=== PATIENT | male | born 1980 | race African-American/Black ===

== ENCOUNTER 2020-04-17 13:10 | Outpatient (CLI) | payer OTHER, SELFPAY ==
--- NOTE | 2020-04-27 18:21 | WPDHOMESLEEP ---
Sleep Study - Home Date of Study: 04/17/20 Ordering Provider: Nigel Ivory DO Interpreting Physician: Jacqueline Duke MD Home Sleep Study Type: Watch PAT Height: 1.68 m Weight: 99.337 kg Body Mass Index: 35.3 [place]: 5 Reason for Sleep Study Witnessed apneas Sleep History Bin Chandler Jr is a 40 yo man with Constant loud snoring. He rarely awakens at night with heartburn, belching or coughing. He does not awaken from sleep feeling short of breath there is no family history of sleep disordered breathing. He rarely has trouble sleep with a cold. He occasionally wakes up gasping for breath at night, rarely has breathing problems reported by others. He does not sweat excessively at night. He rarely notices his heart pounding or beating irregularly at night. He occasionally falls asleep during the day, rarely involuntarily, never while driving or during physical effort. He does not have loss of muscle tone was trauma motion. He does not have daytime difficulties due to excessive sleepiness. He works as an assistant toddler teacher. he does not feel paralyzed on waking or falling asleep, does not have vivid dreamlike scenes upon awakening or falling asleep. He is never afraid to go sleep. Does not have nightmares. He rarely remembers his dreams. He frequently has racing thoughts. He rarely feels sad or depressed. He does not have anxiety. He occasionally has muscular tension. He does not notice part of his body jerking. He rarely kicks at night. He does not have [place] feelings in his legs and does not have leg pain at night. He does not have morning jaw pain. He does not grind his teeth during sleep. He rarely is bothered by pain during the day. He is not awakened by pain at night. He rarely wakes up feeling stiff in the morning. He does not have sore or achy muscles on waking and he does not have pain in the neck and spine on waking. Normal bedtime is 11:00 p.m. falling asleep within 30-40 minutes typically waking 2-3 times at night long enough to go to the bathroom and then return to sleep. He wakes in the morning at 6:30 a.m.. Weekend schedule is the same. He estimates that he gets between 5 and 6 hours of sleep nightly. He does at times take a short nap. A short nap is not refreshing. He is usually drowsy in the morning for 2 hours or longer. He feels better in the afternoon compared to the morning. Habits: He never smoked tobacco. One caffeinated beverage a day and [address] [facility] Past Medical History Medical History (Updated 04/27/20 @ 19:06 by Jacqueline Duke MD) CKD (chronic kidney disease) stage 2, GFR 60-89 ml/min Dyslipidemia HTN (hypertension) Social History Social History (Updated 07/23/19 @ 08:34 by Luzmaria Ramirez CMA) Smoking status: Never smoker Medications Home Medications Medication Instructions Recorded Confirmed Type atorvastatin 20 mg tablet 20 mg PO DAILY #30 tablet 03/09/20 Rx atenolol 50 mg tablet See Rx Instructions .ROUTE 03/23/20 Rx .COMPLEX #30 tablet Sleep Procedure The sleep study was completed using [employer] a technically adequate device with seven channels: peripheral arterial tone, actigraphy, body position, snore, respiratory movement, pulse oximetry, sleep staging, and heart rate. Prior to using the device, the patient received verbal and written instructions for its application and was provided with the help desk phone number for additional telephonic instruction with 24-hour availability of qualified personnel to answer questions. Sleep Architecture The total recording time was 8 hours 49 minutes. The total sleep time was 8 hours 7 minutes. The indices on this study were calculated using technically valid sleep time of 6 hours and 24 minutes. The patient had 49% light sleep, 18 % deep sleep and 32% REM sleep. Sleep efficiency was 92% which is normal. Sleep overall was well consolidated with minimal episodes of wakefu
[2020-04-27 19:06] VITALS: BMI 35.3
== END 2020-04-17 13:11 | disposition home or self-care (01) ==
LOC: ANHCSM 06-05 13:12
PROVIDERS: PCP Internal Medicine Cardiovascular Disease; Visit Provider Internal Medicine Cardiovascular Disease
DX: G47.33 Obstructive sleep apnea (adult) (pediatric) (principal)
CPT/HCPCS: 95800

== ENCOUNTER 2020-06-10 00:54 | Outpatient (CLI) | payer OTHER, SELFPAY ==
[2020-06-10 20:15] LABS: SARS-CoV-2 RNA PCR Negative
== END 2020-06-10 00:55 | disposition home or self-care (01) ==
LOC: ANHCOVIDDT 00:54
PROVIDERS: PCP Internal Medicine Cardiovascular Disease; Visit Provider Internal Medicine Critical Care Medicine
DX: R68.89 Other general symptoms and signs (principal); Z20.828 Contact with and (suspected) exposure to other viral communicable diseases
CPT/HCPCS: 87635; C9803; U0003

== ENCOUNTER 2020-06-13 08:30 | Outpatient (CLI) | payer OTHER, SELFPAY ==
--- NOTE | 2020-07-26 11:34 | WPDSLEEPSTUD ---
Sleep Study Date of Study: 06/13/20 Ordering Provider: Nigel Ivory DO. Interpreting Physician: Jacqueline Duke MD Sleep Study Type: CPAP Titration Height: 1.68 m Weight: 98.43 kg Body Mass Index: 35.0 Neck Circumference: 43.18 cm [place]: 5 Reason for Sleep Study Portable WatchPat study on 04/17/2020 showing severe obstructive sleep apnea with an apnea-hypopnea index of 39.4, desaturation to 71% and 27 minutes spent at or below 88% saturation which was 5.5% of the study. He also had evidence of Bhaskar-Ulloa respirations for 11% of the study. He had loud frequent snoring with an average noise level of 55 decibels. Events were worse in the supine position with a supine apnea-hypopnea index of 44.8. Sleep History Bin Chandler Jr had a home sleep test 04/17/2020 with severe obstructive sleep apnea and Bhaskar-Ulloa respirations, see above. He presents for a titration. His complaints include constant loud snoring. He rarely awakens at night with heartburn, belching or coughing. He does not awaken from sleep feeling short of breath there is no family history of sleep disordered breathing. He rarely has trouble sleep with a cold. He occasionally wakes up gasping for breath at night, rarely has breathing problems reported by others. He does not sweat excessively at night. He rarely notices his heart pounding or beating irregularly at night. He occasionally falls asleep during the day, rarely involuntarily, never while driving or during physical effort. He does not have loss of muscle tone was trauma motion. He does not have daytime difficulties due to excessive sleepiness. He works as an assistant financial accountant. he does not feel paralyzed on waking or falling asleep, does not have vivid dreamlike scenes upon awakening or falling asleep. He is never afraid to go sleep. Does not have nightmares. He rarely remembers his dreams. He frequently has racing thoughts. He rarely feels sad or depressed. He does not have anxiety. He occasionally has muscular tension. He does not notice part of his body jerking. He rarely kicks at night. He does not have crawly or achy feelings in his legs and does not have leg pain at night. He does not have morning jaw pain. He does not grind his teeth during sleep. He rarely is bothered by pain during the day. He is not awakened by pain at night. He rarely wakes up feeling stiff in the morning. He does not have sore or achy muscles on waking and he does not have pain in the neck and spine on waking. Normal bedtime is 11:00 p.m. falling asleep within 30-40 minutes typically waking 2-3 times at night long enough to go to the bathroom and then return to sleep. He wakes in the morning at 6:30 a.m.. Weekend schedule is the same. He estimates that he gets between 5 and 6 hours of sleep nightly. He does at times take a short nap. A short nap is not refreshing. He is usually drowsy in the morning for 2 hours or longer. He feels better in the afternoon compared to the morning. Habits: He never smoked tobacco. One caffeinated beverage a day and 1 alcoholic beverage a day. [facility] Past Medical History Medical History CKD (chronic kidney disease) stage 2, GFR 60-89 ml/min Dyslipidemia HTN (hypertension) Social History Social History (Updated 07/26/20 @ 11:44 by Jacqueline Duke MD) Smoking status: Never smoker Alcohol intake: current Alcohol use details: 1 per day Substance use: never Medications Home Medications Medication Instructions Recorded Confirmed Type atorvastatin 20 mg tablet 20 mg PO DAILY #30 tablet 03/09/20 05/22/20 Rx atenolol 50 mg tablet See Rx Instructions .ROUTE 03/23/20 05/22/20 Rx .COMPLEX #30 tablet chlorthalidone 25 mg tablet 25 mg PO DAILY 05/22/20 05/22/20 History Sleep Procedure This test was performed using the Proficiency multiple channel system including EOG, EEG, submental EMG, EKG, nasal and ora
[2020-07-26 11:35] VITALS: BMI 35.0
== END 2020-06-13 08:31 | disposition home or self-care (01) ==
LOC: ANHCSM 08:30
PROVIDERS: PCP Internal Medicine Cardiovascular Disease; Visit Provider Internal Medicine Cardiovascular Disease
DX: G47.33 Obstructive sleep apnea (adult) (pediatric) (principal); G47.10 Hypersomnia, unspecified
CPT/HCPCS: 95811